=== PATIENT | female | born 1935 | race Caucasian/White ===

== ENCOUNTER 2017-05-12 09:33 | Inpatient (IN) | payer OTHER ==
[~2017-05-12] VITALS: Ht 160 cm; Wt 41.9 kg
--- NOTE | 2017-05-12 11:20 | NUR ---
AWAKE ALERT ,ANSWERS QUESTIONS PROPERLY,SINCE 5 DAYS STARTED TO HAVE ABDOMINAL PAIN WITH DIARRHEA, DIARRHEA MUCOSY LOOSE FOUL SMELL,
--- NOTE | 2017-05-12 11:23 | NUR ---
SEEN BY DR SALGADO
[2017-05-12 12:04] LABS: BASOPHIL % 0.2 % (0-2); PLATELET COUNT 317 x10^3mcL (130-400); RED CELL DISTRIBUTION WIDTH 13.4 % (11.5-14.5)
--- NOTE | 2017-05-12 12:12 | NUR ---
IV ESTABLISHED, IV FLUIDS WIDE OPEN ORDERD,
[2017-05-12 12:23] LABS: microscopic required? YES; urine erythrocyte NEGATIVE (NEGATIVE)
[2017-05-12 12:29] LABS: CALCIUM 8.7 mg/dL (8.5-10.1); CARBON DIOXIDE 26.1 mmol/L (21-32); CHLORIDE SERUM 103 mmol/L (98-107); GLUCOSE SERUM 95 mg/dL (74-106); POTASSIUM SERUM 3.3 mmol/L (3.5-5.1); SODIUM SERUM 139 mmol/L (136-145)
[2017-05-12 12:44] LABS: ALKALINE PHOSPHATASE 57 U/L (46-116); ALT/SGPT 16 U/L (14-59); AMYLASE 59 U/L (25-115); AST/SGOT 15 U/L (15-37); BILIRUBIN TOTAL 0.49 mg/dL (0.20-1.00); CHOLESTEROL 149 mg/dL (<200); HDL CHOLESTEROL 39 mg/dL (40-60); LIPASE 252 IU/L (73-393); MAGNESIUM 1.7 mg/dL (1.8-2.4); T4(THYROXINE) 9.2 ug/dL (4.7-13.3)
[2017-05-12 12:52] LABS: ALBUMIN 2.9 g/dL (3.4-5.0)
[2017-05-12 13:20] LABS: AMPHETAMINE QUAL UR NONE DETECTED (NEG <=1000)
--- NOTE | 2017-05-12 13:20 | NUR ---
TO CT SCAN, PT USED THE BATHROOM WITH HER DAUGHTER ASSISTING HER,URINE MIXED WITH STOOL,
--- NOTE | 2017-05-12 13:34 | NUR ---
PT OFF UNIT IN CT
--- NOTE | 2017-05-12 13:52 | NUR ---
PT IN NO ACUTE DISTRESS, WENT TO RESTROOM WITH DAUGHTER, NO DIARRHEA PER DAUGHTER
--- NOTE | 2017-05-12 14:28 | NUR ---
PT PROVIDED WITH TURKEY SANDWICH AND APPLE JUICE, OKAY TO FEED PT PER DR. SALGADO, NO COMPLAINT OF NAUSEA OR ABD PAIN AT THIS TIME
[2017-05-12] MEDS ORDERED: MOBIC15 MG PO (15:35)
[2017-05-12] MEDS ORDERED: AVAPRO150 MG PO (15:36)
[2017-05-12] MEDS ORDERED: NORVASC2.5 MG PO (15:36)
[2017-05-12] MEDS ORDERED: GOOD NEIGHBOR P20 M2 PO (15:37)
[2017-05-12] MEDS ORDERED: ASPIR 8181 MG PO (15:37)
--- NOTE | 2017-05-12 16:22 | NUR ---
RECEIVED PATIENT FROM ER AT THIS TIME. PATIENT AMBULATED FROM [place] TO BED WITH THE DAUGHTERS ASSISTANCE.
[2017-05-12 16:45] VITALS: BP 177/66
--- NOTE | 2017-05-12 16:50 | NUR ---
DR. EDOUARD IN TO SEE PATIENT AT THIS TIME. REPORTED K 3.3 AND MAG 1.7
--- NOTE | 2017-05-12 17:00 | NUR ---
DR. EDOUARD MADE AWARE OF BP 177/66 HR 76. NO NEW ORDERS AT THIS TIME.
[2017-05-12 17:55] VITALS: BP 145/95
--- NOTE | 2017-05-12 17:55 | NUR ---
PATIENT'S HOME MEDICATION IRBESARTAN 150MG TAKEN TO PHARMACY AT THIS TIME.
--- NOTE | 2017-05-12 20:00 | NUR ---
RECEIVED PT FROM PREVIOUS SHIFT. AAOX3 AT THIS TIME. NOT SURE OF WHY SHE IS HERE. TELE #19. DENIES CP/PRESSURE AT THIS TIME. PULSES PALPABLE BILAT. NO EDEMA NOTED. LUNG SOUNDS CTA BILAT. DENIES SOB ON RA. BOWEL SOUNDS ACTIVE X4. BRP WITH ASSISTANCE. PT TOLERATES WELL. ASSISTED TO RESTROOM. SKIN INTACT. IV TO RFA PATENT AND INTACT. INFUSING WELL. BED IN LOWEST POSITION. CALL LIGHT WITHIN REACH. WILL CONTINUE TO MONITOR.
--- NOTE | 2017-05-12 21:32 | NUR ---
PT RESTING IN BED. FEVER OF 101.4 NOTED. TYLENOL ADMINISTERED. PT TOLERATED WELL. ASSISTED WITH AMBULATION TO RESTROOM AND HAD NO COMPLAINTS OF DIZZINESS OR DIFFICULTY. PLACED BACK IN BED. IV INFUSING WELL TO RFA. BED IN LOWEST POSOTION. CALL LIGHT WITHIN REACH. CALL LIGHT WITHIN REACH. WILL CONTINUE TO MONITOR
[2017-05-12 21:45] VITALS: BP 108/65
--- NOTE | 2017-05-12 22:12 | NUR ---
PT AAOX4. NO FACIAL DROOP NOTED. POWERHOUSE LABORER EQUAL BILAT. SPEECH CLEAR AND APPROPRIATE FOR SITUATION. WILL CONTINUE TO MONITOR
--- NOTE | 2017-05-13 00:50 | NUR ---
PT RESTING PEACEFULLY IN BED. ASSISTED WITH AMBULATION TO RESTROOM. TOLERATED WELL. IV TO RFA PATENT AND INTACT INFUSING WELL. DENIES SOB ON RA. AAOX4. NO FACIAL DROOP NOTED. SPEECH CLEAR AND APPROPRIATE FOR SITUATION. HAND ADJUNCT HISTORY INSTRUCTOR EQUAL BILAT. BED IN LOWEST POSITION. CALL LIGHT WITHIN REACH. WILL CONTINUE TO MONITOR
[2017-05-13 06:17] VITALS: BP 116/64
[2017-05-13 06:32] LABS: CALCIUM 7.7 mg/dL (8.5-10.1); CHLORIDE SERUM 108 mmol/L (98-107); CREATININE SERUM 0.8 mg/dL (0.6-1.0); GLUCOSE SERUM 98 mg/dL (74-106); MAGNESIUM 3.7 mg/dL (1.8-2.4); SODIUM SERUM 139 mmol/L (136-145)
--- NOTE | 2017-05-13 06:43 | NUR ---
PT PEACEFULLY RESTING IN BED. RESPIRATIONS EVEN AND UNLABORED. NO ACUTE DISTRESS NOTED AT THIS TIME. NO FACIAL DROOP NOTED. AAOX4. CLEAR SPEECH AND APPROPRIATE FOR SITUATION. HAND RN REHAB EVEN. IV TO LAC PATENT AND INTACT. NO PAIN INDICATED AT THIS TIME. BED IN LOWEST POSITION. CALL LIGHT WITHIN REACH. WILL ENDORSE CARE TO ONCOMING SHIFT
[2017-05-13 06:44] LABS: BASOPHIL % 0.3 % (0-2); PLATELET COUNT 216 x10^3mcL (130-400); RED CELL DISTRIBUTION WIDTH 13.3 % (11.5-14.5)
--- NOTE | 2017-05-13 07:55 | NUR ---
RC'D PT RESTING IN BED WITH NO APPARENT SIGNS OF DISTRESS. A/A/O/X4, SPEECH CLEAR AND APPROPRIATE. ON TELE 19 WITH SR. DENIES CHEST PAIN/PRESSURE. PALP PULSES, NO EDEMA NOTED. RESPIRATIONS EQUAL AND UNLABORED. LUNGS CTA. ON RA, DENIES SOB. ABDOMEN SOFT AND NONTEDER. ACTIVE BS. DENIES N/V. VOIDS FREELY, DENIES BURNING. GENERALIZED WEAKNESS. AMBULATORY WITH ASSIST. SKIN W/D/I. DENIES PAIN AT THIS TIME. IV PATENT AND INFUSING. BED IN LOW POSITION. CALL LIGHT IN REACH. EDUCATED PT ON USING CALL LIGHT WHEN NEEDING ASSISTANCE. WILL CONTINUE TO MONITOR.
--- NOTE | 2017-05-13 08:56 | NUR ---
BP 108/57, HR 68. HELD NORVASC AND IRBESARTAN. OKAY BY ELECTRIC MOTOR ASSEMBLER. WILL NOTIFY
[2017-05-13 10:33] VITALS: BP 108/57
--- NOTE | 2017-05-13 13:04 | NUR ---
PT RESTING IN BED WITH NO APPARENT SIGNS OF DISTRESS. RESPIRATIONS EQUAL AND UNLABORED BILAT. DENIES PAIN/N/V AT THIS TIME. PT STILL REPORTS NO BM. BED IN LOW POSITION. CALL LIGHT IN REACH. WILL CONTINUE TO MONITOR.
[2017-05-13 13:31] LABS: IRON 12 ug/dL (50-170); TOTAL IRON BINDING CAPACITY 170 ug/dL (250-450)
[2017-05-13 13:52] VITALS: BP 121/85
[2017-05-13 14:07] LABS: RED BLOOD CELLS 3.22 M/mm3 (4.10-5.10)
[2017-05-13 17:51] VITALS: BP 133/59
--- NOTE | 2017-05-13 18:40 | NUR ---
PT RESTING IN BED WITH NO APPARENT SIGNS OF DISTRESS. DAUGHTER PRESENT AT BEDSIDE. RESPIRATIONS EQUAL AND UNLABORED BILAT. IV PATENT AND INFUSING. PT DENIES PAIN BUT STILL REPORTS NO BM AT THIS TIME. BED IN LOW POSITION. CALL LIGHT IN REACH. WILL ENDORSE TO ADVISOR CONSULTANT RN.
--- NOTE | 2017-05-13 19:18 | NUR ---
RECEIVED A BEDSIDE REPORT, SEEN AWAKE, ALERT, ORIENTED, DAUGHTER AT BEDSIDE, BREATHING EASY AND EVEN ON ROOM AIR, MED/SURG PATIENT, GEN BODY WEAKNESS, BRP WITH ASSISTANCE, IVF NS TO LAC INFUSING AT 100NL/HR, SCD TO BLE INPLACED, PLAN OF CARE DISCUSSED, CALL LIGHT PLACED WITHIN EASY REACH, SIDERAILS UP X2. BED ALARM ON.
--- NOTE | 2017-05-13 20:00 | NUR ---
IV CATHETER TO RFA REMOVED PER PATIENT'S REQUESTED, NO INFLAMATION NOTED, PRESSURE DRSG APPLIED. HEARING AID BOTH EARS REMOVED AND PLACED INSIDE THE CONTAINTER AT BEDSIDE BY PATIENT'S DAUGHTER.
--- NOTE | 2017-05-13 20:30 | NUR ---
ASSISTED BY FAMILY TO BATHROOM, NO ANY DISTRESS NOTED AT THIS TIME.
[2017-05-13 21:04] VITALS: BP 135/60
--- NOTE | 2017-05-13 23:30 | NUR ---
STS IV TO LAC LEAKING, IV CATHETER REMOVED NO S/S OF INFLAMATION NOTED, NEW IV CATH#22 INSERTED TO LFA WITH GOOD BLD RETURNED AND FLUSHED WELL. ASSISTED TO BATHROOM WITH MINIMAL ASSISTANCE ON IV POLL. DENIES DIZZINESS. ASSISTED BACK TO BED. LEVAQUIN IVPB CONTINUED.
--- NOTE | 2017-05-14 00:14 | NUR ---
STS FEELING NAUSEA, ZOFAN 4MG IVP GIVEN SLOWLY, NO ADVERSE REACTION NOTED.
--- NOTE | 2017-05-14 00:34 | NUR ---
STS FEELING BETTER AFTER MEDICATED WITH ZOFRAN.
--- NOTE | 2017-05-14 02:00 | NUR ---
RESTING WITH EYES CLOSE, NO ANY DISTRESS NOTED.
--- NOTE | 2017-05-14 05:00 | NUR ---
DENIES ABD PAIN OR NAUSEA AT THIS TIME. IVF NS CONTINUED AT 100ML/HR TO LFA IV SITE.
[2017-05-14 06:47] VITALS: BP 129/62
[2017-05-14 07:12] LABS: BASOPHIL % 0.3 % (0-2); PLATELET COUNT 276 x10^3mcL (130-400); RED CELL DISTRIBUTION WIDTH 13.4 % (11.5-14.5)
[2017-05-14 07:25] LABS: CALCIUM 7.2 mg/dL (8.5-10.1); CARBON DIOXIDE 22.9 mmol/L (21-32); CHLORIDE SERUM 111 mmol/L (98-107); CREATININE SERUM 0.8 mg/dL (0.6-1.0); GLUCOSE SERUM 94 mg/dL (74-106); MAGNESIUM 2.2 mg/dL (1.8-2.4); PHOSPHOROUS 1.8 mg/dL (2.5-4.9); POTASSIUM SERUM 3.9 mmol/L (3.5-5.1); SODIUM SERUM 141 mmol/L (136-145)
--- NOTE | 2017-05-14 08:00 | NUR ---
ALERT AND ORIENTED. SITTING UP IN BED. BREAKFAST OVER LAP. C/O NAUSEA, DENIES ANY PAIN. NS INFUSING 100 CC HOUR. MED/SURG PT. BREATHING FREELY ON RA. VSS. HAD ASSISTED PT BACK FROM BR. LOOSE STOOL MIXED WITH URINE. VSS. CALL LIGHT WITHIN REACH.
[2017-05-14 09:00] VITALS: BP 129/66
[2017-05-14] MEDS ORDERED: FLA500 PO (13:24)
[2017-05-14] MEDS ORDERED: LEVOFLOXACIN500 M1 PO (13:25)
[2017-05-14] MEDS ORDERED: LAC PO (13:26)
[2017-05-14] MEDS ORDERED: ZOF4 PO (13:27)
[2017-05-14] MEDS ORDERED: LOPERAMIDE HCL2 MG PO (13:30)
[2017-05-14 14:04] VITALS: BP 129/66
--- NOTE | 2017-05-14 14:07 | NUR ---
PT HAS FULL UPPER DENTURE ONLY. NO LOWER DENTURE.
--- NOTE | 2017-05-14 14:46 | NUR ---
DC'D TO HOME. NO TELE. IV DC'D INTACT. PRESCRIPTIONS CALLED INTO PTS PHARMACY. HAS F/U [facility] SCED[facility]. ALL DC INSTRUCTIONS REVIEWED WITH PT AND DTR BRIANDA. SIGNED BY PT. BRIANDA [phone].
--- NOTE | 2017-05-14 15:31 | NUR ---
PHYSICAL THERAPY DAILY NOTES CO-SIGN All documentation done by the Program Support Assistant for 05/14/17 has been reviewed. I agree with the documentation. Reviewed/Co-Signed by: Christian Chaudhry PT Documentation Done by:BRANDON BERNAL HEALTH SERVICES COORDINATOR POC REVIEWED W/ HEALTH SERVICES COORDINATOR; PROGRESSING W/ [facility] M[facility] GAIT ENDURANCE.
--- NOTE | 2017-05-14 16:37 | NUR ---
PHYSICAL THERAPY DAILY NOTES CO-SIGN All documentation done by the Prep Person for 05/14/17 has been reviewed. I agree with the documentation. Reviewed/Co-Signed by: Becky Chadwick DPT Documentation Done by:BRANDON INGRAM, MARK I CONCUR W/CARAMEL CANDY MAKER HELPER NOTES. Pt PROGRESSING WELL IN PT TOWARDS SET GOALS.
== END 2017-05-14 14:40 | disposition home or self-care (01) | DRG 640 ==
LOC: ED 09:33 → DU 15:23 → MU 15:23 → DU 16:23 → MU 05-13 09:35
PROVIDERS: Emergency Medicine; ADMIT Family Medicine
DX: E86.0 Dehydration (principal); N17.0 Acute kidney failure with tubular necrosis; Z68.1 Body mass index [BMI] 19.9 or less, adult; E44.0 Moderate protein-calorie malnutrition; D68.69 Other thrombophilia; A08.4 Viral intestinal infection, unspecified; E83.42 Hypomagnesemia; K57.30 Diverticulosis of large intestine without perforation or abscess without bleeding; E87.6 Hypokalemia; N28.1 Cyst of kidney, acquired; N20.0 Calculus of kidney; R80.9 Proteinuria, unspecified; I10 Essential (primary) hypertension; K76.0 Fatty (change of) liver, not elsewhere classified; R73.03 Prediabetes; D63.8 Anemia in other chronic diseases classified elsewhere; J44.9 Chronic obstructive pulmonary disease, unspecified; F17.290 Nicotine dependence, other tobacco product, uncomplicated
CPT/HCPCS: 36600; 83880; 97110-GP; 97116-GP; G0480; J1956; J2405; J3475; J3480; J3490; J7030; J7040; Q0092; Q9967